=== PATIENT | male | born 1975 | race Caucasian/White ===

== ENCOUNTER 2020-03-08 03:02 | Emergency (ER) | payer MEDICAID ==
[~2020-03-08] VITALS: Ht 172.7 cm; Wt 77.0 kg
[2020-03-08 03:08] VITALS: BP 136/94
[2020-03-08] MEDS ORDERED: HYDR-3686 PO (03:30)
[2020-03-08] MEDS ORDERED: BETA15CR4 TOP (03:30)
[2020-03-08] MEDS ORDERED: dexamethasone 4mg tablet PO ONE (03:30)
[2020-03-08] MEDS ORDERED: PRED20TA PO (03:30)
== END 2020-03-08 04:12 | disposition home or self-care (01) ==
LOC: ER 03:03
DX: L23.7 Allergic contact dermatitis due to plants, except food (principal); Z88.0 Allergy status to penicillin; Z79.899 Other long term (current) drug therapy
CPT/HCPCS: 99283

== ENCOUNTER 2020-05-26 13:52 | Emergency (ER) | payer MEDICAID, OTHER ==
[~2020-05-26] VITALS: Ht 172.7 cm; Wt 90.9 kg
[~2020-05-26 13:52] MED LIST: BETA15CR4 TOP
[2020-05-26 13:59] VITALS: BP 140/81
== END 2020-05-26 16:51 | disposition home or self-care (01) ==
LOC: ER 13:54
DX: S01.01XA Laceration without foreign body of scalp, initial encounter (principal); S06.0X1A Concussion with loss of consciousness of 30 minutes or less, initial encounter; Z88.0 Allergy status to penicillin; Z79.899 Other long term (current) drug therapy; R10.11 Right upper quadrant pain; V89.2XXA Person injured in unspecified motor-vehicle accident, traffic, initial encounter; Y93.89 Activity, other specified; Y92.89 Other specified places as the place of occurrence of the external cause; Y99.8 Other external cause status
CPT/HCPCS: 99284

== ENCOUNTER 2021-01-01 11:58 | Emergency (ER) | payer MEDICAID ==
[~2021-01-01] VITALS: Ht 175.3 cm; Wt 91.5 kg
[2021-01-01 12:32] VITALS: BP 127/95
[2021-01-01] MEDS ORDERED: CEPH250T PO (12:35)
[2021-01-01] MEDS ORDERED: DOXY100C76 PO (12:35)
[2021-01-01] MEDS ORDERED: MUPI22OI30 TOP (12:35)
== END 2021-01-01 12:55 | disposition home or self-care (01) ==
LOC: ER 11:59
DX: S00.31XA Abrasion of nose, initial encounter (principal); Z88.0 Allergy status to penicillin; Z79.2 Long term (current) use of antibiotics; Z79.899 Other long term (current) drug therapy; X58.XXXA Exposure to other specified factors, initial encounter; Y93.89 Activity, other specified; Y92.89 Other specified places as the place of occurrence of the external cause; Y99.8 Other external cause status
CPT/HCPCS: 99283

== ENCOUNTER 2022-04-07 12:01 | Emergency (ER) | payer MEDICAID ==
[~2022-04-07] VITALS: Ht 172.7 cm; Wt 81.5 kg
[2022-04-07 13:06] LABS: BASOPHILS % (AUTO) 0.1 % (0-1); EOSINOPHILS % (AUTO) 0.3 % (0-6); HEMATOCRIT 46.5 % (42.0-52.0); HEMOGLOBIN 15.6 g/dl (14.0-17.9); LYMPHOCYTES # (AUTO) 0.9 X10'3 (1.1-4.8); LYMPHOCYTES % (AUTO) 6.8 % (21-51); MEAN CORPUSCULAR HEMOGLOBIN 29.6 PG (27.0-31.0); MEAN CORPUSCULAR HGB CONC 33.6 g/dL (33.0-36.5); MEAN CORPUSCULAR VOLUME 88.3 FL (78-98); MEAN PLATELET VOLUME 7.2 FL (7.4-10.4); MONOCYTES # (AUTO) 0.7 X10'3 (0-0.9); MONOCYTES % (AUTO) 5.4 % (2-12); NEUTROPHILS # (AUTO) 11.5 X10'3 (1.8-7.7); NEUTROPHILS % (AUTO) 87.4 % (42-75); PLATELET COUNT 342 X10'3 (140-440); RED BLOOD COUNT 5.27 X10'6 (4.70-6.10); RED CELL DISTRIBUTION WIDTH 12.9 % (11.5-14.5); WHITE BLOOD COUNT 13.2 X10'3 (4.5-11.0)
--- NOTE | 2022-04-07 13:07 | NUR ---
FIRST CONTACT. AO4 CLAIMS NO SOB OR DIZZINESS. LEFT SIDE PAIN SHOWS NO TRAUMA OR SWELLING. PT DENIES HEMATURIA. RESP EVEN UNLABORED
[2022-04-07 13:21] LABS: ALANINE AMINOTRANSFERASE 49 U/L (12-78); ALBUMIN/GLOBULIN RATIO 1.1 (1.1-1.5); ALKALINE PHOSPHATASE 110 IU/L (46-116); AMYLASE 20 U/L (25-115); ANION GAP 11 (8-16); ASPARTATE AMINO TRANSFERASE 40 U/L (10-37); BILIRUBIN,TOTAL 0.4 MG/DL (0.1-1.0); BLOOD UREA NITROGEN 21 MG/DL (7-18); BUN/CREATININE RATIO 20.6 (5.4-32.0); CHLORIDE 102 MMOL/L (99-107); CREATININE 1.02 MG/DL (0.60-1.10); GLUCOSE 111 MG/DL (70-104); LIPASE 62 U/L (73-393); SODIUM 138 MMOL/L (135-145); TOTAL CARBON DIOXIDE 25.3 MMOL/L (24-32); TOTAL PROTEIN 7.5 G/DL (6.4-8.2); eGFR 78 ML/MIN
[2022-04-07 13:22] LABS: POTASSIUM 3.9 MMOL/L (3.5-5.1)
[2022-04-07] MEDS ORDERED: tamsulosin 0.4mg capsule PO STA (13:48)
[2022-04-07] MEDS ORDERED: normal saline 1000ML IV soln IVB ONE (13:50)
[2022-04-07] MEDS ORDERED: ketorolac trometh. 30mg/ml inj. IV ONE (13:50)
[2022-04-07] MEDS ORDERED: ondansetron/PF 4mg/2ml inj IV ONE (13:50)
[2022-04-07] MEDS ORDERED: ONDA4TAB12 PO (15:15)
[2022-04-07] MEDS ORDERED: FLO0.4C PO (15:15)
[2022-04-07] MEDS ORDERED: HYDR-3965 PO (15:15)
[2022-04-07] MEDS ORDERED: NAPR-56 PO (15:15)
[2022-04-07 15:41] VITALS: BP 143/99
== END 2022-04-07 15:43 | disposition home or self-care (01) ==
LOC: ER 12:01
DX: N20.0 Calculus of kidney (principal); Z88.0 Allergy status to penicillin; Z79.899 Other long term (current) drug therapy
CPT/HCPCS: 36415; 74176; 80053; 82150; 83690; 85025; 96361; 96374; 96375; 99285; J1885; J2405; J7030